=== PATIENT | male | born 1960 | race Caucasian/White ===

== ENCOUNTER 2016-12-26 06:03 | Observation (INO) | payer OTHER, BC ==
--- NOTE | ~2016-12-26 | TEE ---
Transesophageal Echocardiogram [id number] [place]. [address] NAME: NACHO KING : 62 STATUS : REG REF PAT#: [id number] AGE: 56 ADM/REG DATE : 12/26/16 MR#: [id number] REPORT SERV DATE: 12/26/16 DICTATED BY: YUNIEL PRADO DATE: 12/26/16 REPORT STATUS : Draft TRANSCRIBED BY: MODL DATE: 12/26/16 TRANSESOPHAGEAL ECHOCARDIOGRAM. INDICATION: A 56-year-old man with atrial fibrillation. PROCEDURE: After questions were answered and consents were signed, the patient was sedated with propofol per Anesthesia. The probe was placed in the mid esophagus and images were obtained without difficulty. At the conclusion of the procedure, the probe was withdrawn. The patient remained in the EP lab for continued procedure. 2D INTERPRETATION: The left ventricular size is normal. The left ventricular function is mildly decreased with EF approximately 40%. The mitral valve opened adequately. No prolapse was noted. The left atrium was mildly increased in size. No thrombus is noted in the left atrium nor the left atrial appendage. The left atrial appendage was interrogated in multiple views. The interatrial septum was intact. The aortic valve was trileaflet and opened adequately. No stenosis or sclerosis was appreciated. The right atrium was grossly normal. The tricuspid valve normal and well visualized. The right ventricle is normal. No pericardial effusion was noted. No significant atherosclerotic plaquing was noted in the descending aorta or aortic arch. COLOR FLOW: Mild mitral with trace tricuspid, no aortic and trace pulmonic insufficiency. No color flow was noted across the interatrial septum. DOPPLER: Doppler flow velocities in the left atrial appendage approached 40 cm/second. CONCLUSION: 1. MILDLY DECREASED LEFT VENTRICULAR SYSTOLIC FUNCTION WITH ESTIMATED LVEF OF 40%. 2. MILD MITRAL REGURGITATION WITH NO THROMBUS IN THE LEFT ATRIAL APPENDAGE. WO/MODL Yuniel Prado M.D., Ph.D, F.A.C.C. / [id number] CC: Kristie Yepez ANDERS PRECIOUS
[~2016-12-26 06:03] MED LIST: C1; CORDARONE PO; COREG12 PO; COREG6 PO; GLUCOPHAGE1000 MG PO; LIPITOR10 PO; PRIN2.5 PO
[2016-12-26 06:47] LABS: BASOPHILS 0.4 %; BASOPHILS ABSOLUTE 0.04 10/3/uL (0.0-0.16); EOSINOPHILS 1.4 %; EOSINOPHILS ABSOLUTE 0.13 10/3/uL (0.0-0.53); HEMATOCRIT 39.7 % (40.0-51.0); HEMOGLOBIN 13.8 g/dL (13.6-17.8); IMMATURE GRANULOCYTES 0.2 %; IMMATURE GRANULOCYTES ABSOLUTE 0.02 10/3/uL (0.0-0.11); LYMPHOCYTES 12.8 %; LYMPHOCYTES ABSOLUTE 1.18 10/3/uL (0.67-4.30); MEAN CORPUS HGB CONC 34.8 g/dL (32.0-36.0); MEAN CORPUSCULAR HEMOGLOB 30.1 pg (26.0-34.0); MEAN CORPUSCULAR VOLUME 86.5 fL (80-100); MEAN PLATELET VOLUME 11.6 fL (9.2-13.0); MONOCYTES 9.1 %; MONOCYTES ABSOLUTE 0.84 10/3/uL (0.21-1.20); NEUTROPHILS 76.1 %; NEUTROPHILS ABSOLUTE 6.99 10/3/uL (2.02-8.40); PLATELET COUNT 169 10/3/uL (150-400); RBC DISTRIBUTION WIDTH 13.9 % (12.0-16.0); RED CELL COUNT 4.59 10/6/uL (4.7-6.1); WHITE BLOOD CELLS 9.2 10/3/uL (4.5-10.5)
[2016-12-26 06:49] LABS: MANUAL DIFF NO %
[2016-12-26 06:59] LABS: BUN (BLOOD UREA NITROGEN) 22 MG/DL (6-23); CHLORIDE, SERUM 109 MMOL/L (96-112); CO2 (CARBON DIOXIDE) 25 MMOL/L (24-34); CREATININE 0.77 MG/DL (0.70-1.30); GFR AFRICAN AMERICAN 118 ML/MIN (>=60); GFR NON AFRICAN AMERICAN 102 ML/MIN (>=60); GLUCOSE, SERUM 241 MG/DL (60-99); POTASSIUM, SERUM 4.3 MMOL/L (3.5-5.3); SODIUM, SERUM 142 MMOL/L (135-148)
[2016-12-26 07:02] LABS: INTERNATIONAL NORMAL RATI 2.4 UNITS (-); PROTIME (NOT ORD) 25.5 SEC (12.0-14.5)
[2016-12-27 06:22] LABS: INTERNATIONAL NORMAL RATI 2.5 UNITS (-); PROTIME (NOT ORD) 26.8 SEC (12.0-14.5)
[2016-12-27] MEDS ORDERED: PRILO PO (10:28)
== END 2016-12-27 10:51 | disposition home or self-care (01) ==
LOC: CORLMH 06:03 → SSU1 06:24
PROVIDERS: Internal Medicine Cardiovascular Disease
DX: I48.1 Persistent atrial fibrillation (principal); I11.9 Hypertensive heart disease without heart failure; E11.9 Type 2 diabetes mellitus without complications; E78.5 Hyperlipidemia, unspecified; I48.92 Unspecified atrial flutter; Z79.899 Other long term (current) drug therapy; Z79.01 Long term (current) use of anticoagulants
CPT/HCPCS: 80048; 82962; 85025; 85347; 85610; 93005; 93312; 93320; 93325; 93613; 93655; 93656; 93662; 96374; A9270-GY; C1732; C1759; C1769; C1781; C1894; G0378; J2250; J2370; J2405; J2720; J3010; Q9967